=== PATIENT | female | born 1990 ===

== ENCOUNTER 2020-10-30 04:54 | Inpatient (IN) | payer OTHER ==
[~2020-10-30] VITALS: Ht 157.5 cm; Wt 2.7 kg
[2020-10-30] MEDS ORDERED: PRENATAL TABLE1 EAC1 PO (07:44)
[2020-11-02] MEDS ORDERED: COLACE100 MG PO (11:00)
[2020-11-02] MEDS ORDERED: SIMETHICONE125 M1 PO (11:00)
[2020-11-02] MEDS ORDERED: IBU800 MG PO (11:00)
[2020-11-02] MEDS ORDERED: FUSION PLUS CA1 EACH PO (11:00)
== END 2020-11-02 12:52 | disposition home or self-care (01) | DRG 785 ==
LOC: OB/GYN 04:54 → LDR 04:54 → OB/GYN 10:05
PROVIDERS: ADMIT Obstetrics & Gynecology; ATTEND Obstetrics & Gynecology
PROC: 0UB70ZZ Excision of Bilateral Fallopian Tubes, Open Approach (ICD-10-PCS; 2020-10-30)
PROC: 4A1HXFZ Monitoring of Products of Conception, Cardiac Rhythm, External Approach (ICD-10-PCS; 2020-10-30)
PROC: 10D00Z1 Extraction of Products of Conception, Low, Open Approach (ICD-10-PCS; principal; 2020-10-30 07:30)
DX: O42.02 Full-term premature rupture of membranes, onset of labor within 24 hours of rupture (principal); O32.9XX0 Maternal care for malpresentation of fetus, unspecified, not applicable or unspecified; O34.211 Maternal care for low transverse scar from previous cesarean delivery; Z30.2 Encounter for sterilization; Z3A.37 37 weeks gestation of pregnancy; Z37.0 Single live birth